=== PATIENT | male | born 1955 | race Caucasian/White ===

== ENCOUNTER 2016-06-24 12:12 | Emergency (ER) | payer OTHER ==
--- NOTE | 2016-06-24 15:21 | DIAGNOSTIC IMAGING REPORT ---
PROCEDURE: US VENOUS - RIGHT EXT INDICATION: SWELLING TECHNIQUE: Duplex sonography of the deep venous system in the right lower extremity was performed. Compression and augmentation techniques were used. COMPARISON: None. FINDINGS: Each interrogated segment of deep vein from the common femoral vein into the calf veins demonstrates normal compressibility, augmentation and/or color Doppler flow without filling defect. There is a heterogeneous cystic area extending from the popliteal fossa to the distal calf. This most likely represents evolving clot and hematoma IMPRESSION: 1. No deep venous thrombosis in the right lower extremity. 2. Evolving clot and hematoma in the calf.
--- NOTE | 2016-06-24 17:09 | ED CLINICAL REPORT ---
Clinical Report - Physicians/Mid Levels [facility] [address] [place] [address] 06/24/2016 12:13 Patient: MICHAELA MARMOLEJO Time Seen: 12:22. Arrived- By private vehicle. Historian- patient. HISTORY OF PRESENT ILLNESS Chief Complaint: LOWER EXTREMITY PAIN and SWELLING. This started several days ago and is still present. Severity is described as being moderate. The quality is noted to be dull. Flexion- worsened by standing and flexion. (elevation improves). Symptoms located in the area of the right leg. The patient has had mild redness and swelling. He has had mild difficulty walking. It has been associated with pain in the right leg. No bladder dysfunction, bowel dysfunction, sensory loss or motor loss. Patient denies an injury. Similar symptoms previously: None. Recent medical care: Not recently seen/assessed. REVIEW OF SYSTEMS No cough, chest pain, difficulty breathing, fever or skin rash. No enlarged lymph nodes, neck pain, back pain, headache or blurred vision. No sore throat, abdominal pain, vomiting, diarrhea or black stools. No difficulty with urination or bloody stools. All systems otherwise negative, except as recorded above. PAST HISTORY Problems: Knee Injury. Additional Surgeries: Ankle surg. Shoulder Surgery. Medications: Prostate daily . Atorvastatin Calcium Oral 10 mg, daily. Lipitor Oral 10 mg, daily. Allergies: None. SOCIAL HISTORY Never smoker. Occasional alcohol use. No drug use. ADDITIONAL NOTES The nursing notes have been reviewed. PHYSICAL EXAM Vital Signs: 06/24/2016 12:36 BP: 126/78. HR: 98. RR: 20. O2 saturation: 95%. Temp: 98.2 F. Pain level now: 4/10. Have been reviewed. Appearance: Alert. Oriented X3. No acute distress. Eyes: Pupils equal, round and reactive to light. Eyes normal inspection. ENT: Nose normal. Neck: Normal inspection. CVS: Normal heart rate and rhythm. Heart sounds normal. Respiratory: No respiratory distress. Breath sounds normal. Abdomen: Soft and nontender. Back: Normal inspection. No tenderness. ROM normal. Skin: Skin intact. Skin warm and dry. Extremities: Right leg: mild erythema and tenderness and moderate swelling located in the upper, mid and lower leg. Limited weight bearing secondary to pain. Neurovascular intact distally. No laceration, abrasion, ecchymosis, puncture wound or foreign body. No deformity. Extremities otherwise negative. Neuro: Oriented X 3. No motor deficit. No sensory deficit. LABS, X-RAYS, AND EKG Lower Extremity Sonography: No compression abnormality noted. Visualized common femoral artery and common femoral vein, superficial femoral artery and superficial femoral vein, deep femoral artery and deep femoral vein and popliteal artery and popliteal vein. Vessels patent. Augmented flow present with calf compression. Evolving hematoma with extravascular clot in R calf. Study type: utilized duplex sonography. The exam was performed by a career guidance technician. The study was interpreted by the radiologist and discussed with the radiologist. Prior studies were not available for comparison. Pulse Oximetry: 06/24/2016 12:36 O2 saturation: 95%. (FIO2 - room air). Interpretation: normal. PROGRESS AND PROCEDURES Course of Care: Pt declined analgesia in the ED. US was performed to evaluate for DVT. Pt had no DVT, but a hematoma was visualized in the calf. The source of this is not clear; however, no evidence of compartment syndrome is present at this time. Pt was given Bactrim, as his skin did have the appearance of mild cellulitis. Patient and family counseled in person regarding the patient's stable condition, test results, diagnosis and need for follow-up. Concerns were addressed. Old medical records reviewed. Disposition: Discharged. Condition: stable. CLINICAL IMPRESSION Cellulitis of the right lower leg. Single hematoma to the right lower leg. Possible ruptured Richmond's cyst; right knee. INSTRUCTIONS Elevate affected areas above chest level as needed and until better. Warnings: GENERAL WARNINGS: Return or contact your physician immediately if your condition worsens or changes unexpectedly, if not improving as expected, or if other problems arise. Your Current Medications: CONTINUE TAKING THE FOLLOWING MEDICATIONS: Atorvastatin Calcium Oral : 10 mg daily. Lipitor Oral : 10 mg daily. Prostate daily *. Prescription Medications: Trimethoprim-Sulfamethoxazole DS: take 1 tablet orally every 12 hours for 7 days. No refill. Follow-up: Follow up with your doctor in three weeks if not better. Understanding of the discharge instructions verbalized by patient. (Electronically signed by Britt Etienne MD 06/30/2016 7:37)
--- NOTE | 2016-06-24 17:09 | ED NURSING NOTES ---
Clinical Report - Nurses [facility] [address] [place] [address] 06/24/2016 12:13 Patient: MICHAELA MARMOLEJO TRIAGE Triage time 12:28. Acuity: LEVEL 3. Chief Complaint: RIGHT LOWER EXTREMITY PAIN, SWELLING and REDNESS. Alert. No acute distress. SEPSIS SCREEN: Sepsis Screen: negative. Negative (no infection suspected/documented). ALFREDO COMA SCORE: [place] Coma Scale: 15- eyes open spontaneously (4); best verbal response- oriented x 4 (5); best motor response- obeys commands (6). --12:45 Melanie Bhardwaj R.N. 12:36 06/24/16. BP: 126/78. HR: 98. RR: 20. O2 saturation: 95%. Temp: 98.2 F (oral). Pain level now: 09/05. --12:45 Melanie Bhardwaj R.N. Weight: 79.3 kg estimated. Height/Length: 68 inches Estimated. BMI: 26.6. --12:29 Melanie Bhardwaj R.N. Medications Lipitor Oral 10 mg, daily. --12:39 Melanie Bhardwaj R.N. Atorvastatin Calcium Oral 10 mg, daily. --12:39 Melanie Bhardwaj R.N. Prostate daily . --12:40 Melanie Bhardwaj R.N. Allergies None. --12:40 Melanie Bhardwaj R.N. Medication/allergy information source: the patient. --12:45 Melanie Bhardwaj R.N. History Arrived by private vehicle. Historian: patient and family. Accompanied by family. Primary physician ([facility]). This occurred (2 days ago, calf started to swell.). It is described as radiating to the right lower extremity and knee ("calf tight and uncomfortable). ( HX of bilat injury to knees, no surg). He has had swelling and trouble walking. The patient has been limping when trying to walk. Treatment FITNESS AND WELLNESS DIRECTOR: (advil). PAST MEDICAL HX: Tetanus status: up-to-date. ( prostate problems, cholesterol issues.). SOCIAL HX: Never smoker. Occasional alcohol use. No drug use. FALL RISK ASSESSMENT: Fall risk assessment completed. No fall risk identified. NUTRITIONAL RISK ASSESSMENT: The nutritional risk assessment revealed no deficiencies. FUNCTIONAL ASSESSMENT: Functional assessment: no impairments noted. LEARNING NEEDS ASSESSMENT: The learning needs assessment revealed no barriers. SKIN INTEGRITY ASSESSMENT: Skin integrity risk assessment completed. No skin integrity risk identified. --12:45 Melanie Bhardwaj R.N. PROBLEMS: Knee Injury. --12:42 Melanie Bhardwaj R.N. ADDITIONAL SURGERIES: Ankle surg. Shoulder Surgery. --12:42 Melanie Bhardwaj R.N. Interventions ID band on patient. To room. --12:45 Melanie Bhardwaj R.N. PHYSICAL ASSESSMENT Ambulatory to room. Patient gowned. GENERAL / NEURO / PSYCH: Oriented X 4. Alert. Appears in pain and anxious. EXTREMITIES: Erythema on the extremities. Limited ROM present. Increased warmth on the extremities. SKIN: Skin intact. Skin is warm and dry. --12:45 Melanie Bhardwaj R.N. NURSING PROGRESS NOTES Extremity elevated. Patient gowned. Two patient identifiers checked. Call light placed in reach. Side rails up x 1. Bed placed in lowest position. Brakes of bed on. Patient ready for evaluation. --12:45 Melanie Bhardwaj R.N. 14:12 06/24/16. BP: 122/71. HR: 92. RR: 18. O2 saturation: 95% on room air. Pain level now: 3/10. 13:10 06/24/16. BP: 121/69. HR: 88. RR: 18. O2 saturation: 97% on room air. --14:14 Melanie Bhardwaj R.N. 17:00 06/24/2016 Bactrim DS (Sulfamethoxazole-TMP DS) PO 1 tab given. Allergies verified and confirmed 5 rights. --18:49 Melanie Bhardwaj R.N. DISPOSITION / DISCHARGE 17:20. Condition at departure: improved. No learning barriers present. Discharge instructions provided and reviewed with the patient and spouse. Reviewed medication(s) side effects, precautions, dosing and course information. Prescription(s) given to the patient. Patient verbalized understanding. Written instructions provided in Rwandan. The patient was discharged home and accompanied by spouse. He left the Emergency Department ambulatory and via private vehicle. Spouse driving. Medication list reviewed and validated. --18:48 Melanie Bhardwaj R.N. 17:44 06/24/16. BP: 123/77. HR: 79. RR: 18. O2 saturation: 99%. Temp: deferred. Pain level now: 07/08. 14:12 06/24/16. BP: 122/71. HR: 92. RR: 18. O2 saturation: 95% on room air. Pain level now: 08/05. 13:10 06/24/16. BP: 121/69. HR: 88. RR: 18. O2 saturation: 97% on room air. 12:36 06/24/16. BP: 126/78. HR: 98. RR: 20. O2 saturation: 95%. Temp: 98.2 F (oral). Pain level now: 09/05. --18:48 Melanie Bhardwaj R.N. Locked/Released at 06/24/2016 18:50 by Melanie Bhardwaj R.N.
--- NOTE | 2016-06-24 17:09 | ED NURSING NOTES ---
Clinical Report - Nurses [facility] [address] [place] [address] 06/24/2016 12:13 Patient: MICHAELA MARMOLEJO TRIAGE Triage time 12:28. Acuity: LEVEL 3. Chief Complaint: RIGHT LOWER EXTREMITY PAIN, SWELLING and REDNESS. Alert. No acute distress. SEPSIS SCREEN: Sepsis Screen: negative. Negative (no infection suspected/documented). ALFREDO COMA SCORE: [place] Coma Scale: 15- eyes open spontaneously (4); best verbal response- oriented x 4 (5); best motor response- obeys commands (6). --12:45 Melanie Bhardwaj R.N. 12:36 06/24/16. BP: 126/78. HR: 98. RR: 20. O2 saturation: 95%. Temp: 98.2 F (oral). Pain level now: 09/05. --12:45 Melanie Bhardwaj R.N. Weight: 79.3 kg estimated. Height/Length: 68 inches Estimated. BMI: 26.6. --12:29 Melanie Bhardwaj R.N. Medications Lipitor Oral 10 mg, daily. --12:39 Melanie Bhardwaj R.N. Atorvastatin Calcium Oral 10 mg, daily. --12:39 Melanie Bhardwaj R.N. Prostate daily . --12:40 Melanie Bhardwaj R.N. Allergies None. --12:40 Melanie Bhardwaj R.N. Medication/allergy information source: the patient. --12:45 Melanie Bhardwaj R.N. History Arrived by private vehicle. Historian: patient and family. Accompanied by family. Primary physician ([facility]). This occurred (2 days ago, calf started to swell.). It is described as radiating to the right lower extremity and knee ("calf tight and uncomfortable). ( HX of bilat injury to knees, no surg). He has had swelling and trouble walking. The patient has been limping when trying to walk. Treatment ELEMENTARY SCHOOL PROFESSIONAL: (advil). PAST MEDICAL HX: Tetanus status: up-to-date. ( prostate problems, cholesterol issues.). SOCIAL HX: Never smoker. Occasional alcohol use. No drug use. FALL RISK ASSESSMENT: Fall risk assessment completed. No fall risk identified. NUTRITIONAL RISK ASSESSMENT: The nutritional risk assessment revealed no deficiencies. FUNCTIONAL ASSESSMENT: Functional assessment: no impairments noted. LEARNING NEEDS ASSESSMENT: The learning needs assessment revealed no barriers. SKIN INTEGRITY ASSESSMENT: Skin integrity risk assessment completed. No skin integrity risk identified. --12:45 Melanie Bhardwaj R.N. PROBLEMS: Knee Injury. --12:42 Melanie Bhardwaj R.N. ADDITIONAL SURGERIES: Ankle surg. Shoulder Surgery. --12:42 Melanie Bhardwaj R.N. Interventions ID band on patient. To room. --12:45 Melanie Bhardwaj R.N. PHYSICAL ASSESSMENT Ambulatory to room. Patient gowned. GENERAL / NEURO / PSYCH: Oriented X 4. Alert. Appears in pain and anxious. EXTREMITIES: Erythema on the extremities. Limited ROM present. Increased warmth on the extremities. SKIN: Skin intact. Skin is warm and dry. --12:45 Melanie Bhardwaj R.N. NURSING PROGRESS NOTES Extremity elevated. Patient gowned. Two patient identifiers checked. Call light placed in reach. Side rails up x 1. Bed placed in lowest position. Brakes of bed on. Patient ready for evaluation. --12:45 Melanie Bhardwaj R.N. 14:12 06/24/16. BP: 122/71. HR: 92. RR: 18. O2 saturation: 95% on room air. Pain level now: 3/10. 13:10 06/24/16. BP: 121/69. HR: 88. RR: 18. O2 saturation: 97% on room air. --14:14 Melanie Bhardwaj R.N. 17:00 06/24/2016 Bactrim DS (Sulfamethoxazole-TMP DS) PO 1 tab given. Allergies verified and confirmed 5 rights. --18:49 Melanie Bhardwaj R.N. DISPOSITION / DISCHARGE 17:20. Condition at departure: improved. No learning barriers present. Discharge instructions provided and reviewed with the patient and spouse. Reviewed medication(s) side effects, precautions, dosing and course information. Prescription(s) given to the patient. Patient verbalized understanding. Written instructions provided in Grenadian. The patient was discharged home and accompanied by spouse. He left the Emergency Department ambulatory and via private vehicle. Spouse driving. Medication list reviewed and validated. --18:48 Melanie Bhardwaj R.N. 17:44 06/24/16. BP: 123/77. HR: 79. RR: 18. O2 saturation: 99%. Temp: deferred. Pain level now: 07/08. 14:12 06/24/16. BP: 122/71. HR: 92. RR: 18. O2 saturation: 95% on room air. Pain level now: 08/05. 13:10 06/24/16. BP: 121/69. HR: 88. RR: 18. O2 saturation: 97% on room air. 12:36 06/24/16. BP: 126/78. HR: 98. RR: 20. O2 saturation: 95%. Temp: 98.2 F (oral). Pain level now: 09/05. --18:48 Melanie Bhardwaj R.N. Locked/Released at 06/24/2016 18:50 by Melanie Bhardwaj R.N.
--- NOTE | 2016-06-24 17:09 | ED ORDER SUMMARY ---
..... Patient: MICHAELA MARMOLEJO OrderSheet [facility] VisitID: [id number] [place] [address] 60y, M Registration Date/Time: 06/24/2016 ORDER SHEET Weight: 79.3 kg (estimated) Allergies: None GENERAL ORDERS: US Venous Right Urgent (14:09 06/24/2016 Sebastian BROOKS) (Ack 14:12 LTapper) (16:57 SRoberts R.N.) MEDICATION ORDERS: Bactrim DS PO (Tablet 800-160 mg) 1 tab (NOW) (16:51 06/24/2016 Sebastian BROOKS) (Ack 16:57 SRoberts R.N.) (18:49 SRoberts R.N.) IV FLUIDS: ORDER SHEET NOTES: [Electronically signed by Melanie Bhardwaj R.N. (18:50 06/24/2016)] [Electronically signed by Britt Etienne MD (07:37 06/30/2016)] [Electronically locked/signed by Melanie Bhardwaj R.N. (18:50 06/24/2016)]
--- NOTE | 2016-06-24 17:09 | ED ORDER SUMMARY ---
..... Patient: MICHAELA MARMOLEJO OrderSheet [facility] VisitID: [id number] [place] [address] 60y, M Registration Date/Time: 06/24/2016 ORDER SHEET Weight: 79.3 kg (estimated) Allergies: None GENERAL ORDERS: US Venous Right Urgent (14:09 06/24/2016 Sebastian BROOKS) (Ack 14:12 LTapper) (16:57 SRoberts R.N.) MEDICATION ORDERS: Bactrim DS PO (Tablet 800-160 mg) 1 tab (NOW) (16:51 06/24/2016 Sebastian BROOKS) (Ack 16:57 SRoberts R.N.) (18:49 SRoberts R.N.) IV FLUIDS: ORDER SHEET NOTES: [Electronically signed by Melanie Bhardwaj R.N. (18:50 06/24/2016)] [Electronically signed by Britt Etienne MD (07:37 06/30/2016)] [Electronically locked/signed by Melanie Bhardwaj R.N. (18:50 06/24/2016)]
--- NOTE | 2016-06-30 07:37 | ED DISCHARGE INSTRUCTIONS ---
Patient: MICHAELA MARMOLEJO General Instructions [facility] VisitID: [id number] [place] [address] 60y, M Registration Date/Time: 06/24/2016 Cellulitis of the right lower leg. Single hematoma to the right lower leg. INSTRUCTIONS Elevate affected areas above chest level as needed and until better. Warnings: GENERAL WARNINGS: Return or contact your physician immediately if your condition worsens or changes unexpectedly, if not improving as expected, or if other problems arise. Your Current Medications: CONTINUE TAKING THE FOLLOWING MEDICATIONS: Atorvastatin Calcium Oral : 10 mg daily. Lipitor Oral : 10 mg daily. Prostate daily *. Prescription Medications: Trimethoprim-Sulfamethoxazole DS: take 1 tablet orally every 12 hours for 7 days. No refill. Follow-up: Follow up with your doctor in three weeks if not better. Understanding of the discharge instructions verbalized by patient. ADDITIONAL INFORMATION Cellulitis You have an infection of the skin known as cellulitis. This usually starts with a scrape, cut, insect bite, blister or other opening in the skin which becomes infected. This is a serious condition. It must be watched closely to be sure the infection is not spreading. With antibiotic treatment, the size of the red area will gradually shrink in size until the skin returns to normal. This will take 7-10 days. The red area should never increase in size once the antibiotic medicine has been started. Occasionally, an infection will be resistant to one antibiotic and another one will have to be used. Home Care: 1) Limit the use of the affected part, since excess movement can cause the infection to spread. 2) If the infection is on your leg, walk as little as possible during the first few days of the treatment. Keep your leg elevated while sitting. This will reduce swelling. 3) Take all of the antibiotic medicine exactly as directed until it is gone. Be careful not to miss any doses, especially during the first seven days. Follow Up with your doctor or this facility as directed. Check the infected area daily for the warning signs listed below. Get Prompt Medical Attention if any of the following occur: -- Spreading area of redness -- Increasing swelling or pain -- Appearance of pus or drainage -- Fever over 100.4 F (38.0 C) oral, or over 101.4 F (38.6 C) rectal, after two days on antibiotics BakerS Cyst The knee joint is surrounded by a capsule filled with lubricating fluid called synovial fluid. This capsule connects to a small pouch behind the knee, called a bursa. Irritation inside the joint from arthritis or a torn cartilage causes excess synovial fluid to form. This builds pressure inside the joint and the extra fluid flows into the bursa behind the knee. This creates a bulge in the back of your knee. This bulge is called a Bakers cyst. A small Bakers cyst usually causes no symptoms. A larger cyst can cause knee pain or a feeling of pressure behind the knee when you try to fully straighten or bend that joint. A Bakers cyst can leak, causing the fluid to move between the tissues of the lower leg. This results in swelling, pain and redness. Treatment of a Bakers cyst involves removal of the excess fluid and injection of a cortisone-type medicine. If excess fluid is a result of a torn cartilage, an operation to repair the cartilage may be the best treatment option. If arthritis is the cause of the excess fluid, and it does not respond to medical treatment, the cyst can be surgically removed. Home Care If you are having knee pain, stay off the affected leg as much as possible until symptoms improve. Make an ice pack (ice cubes in a plastic bag, wrapped in a towel) and apply to the painful area for 20 minutes every 1-2 hours the first day. You may continue to use ice packs 3-4 times a day for the next few days. You may use acetaminophen (Tylenol) or ibuprofen (Motrin, Advil) to control pain, unless another medicine was prescribed. [NOTE: If you have chronic liver or kidney disease or ever had a stomach ulcer or GI bleeding, talk with your doctor before using these medicines.] If crutches or a walker have been recommended, do not bear full weight on the injured leg until you can do so without pain. Check with your doctor before returning to sports or full work duties. If you were given a Velcro knee brace, you may open the brace to apply ice. Unless told otherwise, you may remove the brace to bathe and sleep. Follow Up with your doctor within 1-2 weeks or as advised by our staff. [NOTE: If x-rays were taken, they will be reviewed by a radiologist. You will be notified of any new findings that may affect your care.] Return Promptly or contact your doctor if any of the following occur: Toes or foot becomes swollen, cold, blue, numb or tingly Pain or swelling increases Warmth or redness appears over the knee Redness, swelling or pain in the calf or lower leg Hematoma A hematoma is caused by an injury with damage to small blood vessels. This causes blood to leak into the tissues. Blood forms a pocket under the skin that swells and looks like a purplish patch. Gradually the blood in the hematoma is absorbed back into the body. The swelling and pain of the hematoma will go away. This takes from one to four weeks, depending on the size of the hematoma. The skin over the hematoma may turn bluish then brown and yellow as the blood is dissolved and absorbed. Home Care: Limit motion of the joints near the hematoma. If the hematoma is large and painful, you should avoid sports and other vigorous physical activity until the swelling and pain goes away. Apply an ice pack (ice cubes in a plastic bag, wrapped in a towel) over the injured area for 20 minutes every 1-2 hours the first day. You should continue with ice packs 3-4 times a day for the next two days. Continue the use of ice packs for relief of pain and swelling as needed. You may use acetaminophen (Tylenol) or ibuprofen (Motrin, Advil) to control pain, unless another pain medicine was prescribed. [ NOTE : If you have chronic liver or kidney disease or ever had a stomach ulcer or GI bleeding, talk with your doctor before using these medicines.] Follow Up with your doctor or as advised by our staff. [ NOTE: A radiologist will review any X-rays that were taken. We will notify you of any new findings that may affect your care.] Get Prompt Medical Attention if any of the following occur: Redness around the hematoma Increase in pain or warmth in the hematoma Increase in size of the hematoma Fever of 100.4F (38C) or higher, or as directed by your healthcare provider If the hematoma is on the arm or leg, watch for: Increased swelling or pain in the extremity Numbness or tingling or blue color of the hand or foot You have been given the following additional information: Cellulitis Richmond's Cyst Hematoma (Electronically signed by Britt Etienne MD 06/30/2016 7:37)
--- NOTE | 2016-06-30 07:37 | ED MED RECONCILIATION SUMMARY ---
Patient: MICHAELA MARMOLEJO Medication Reconciliation Report [facility] VisitID: [id number] [address] [place] [address] 60y, M Registration Date/Time: 06/24/2016 Weight: 79.3 kg Height/Length: 68 in. BMI: 26.6 ALLERGIES: None The patient's Home Medications are listed below: CONTINUE TAKING THE FOLLOWING MEDICATIONS: Atorvastatin Calcium Oral 10 mg, daily Lipitor Oral 10 mg, daily Prostate daily The source(s) of the original Home Medication information: patient The following Medications were given to the patient in the Emergency Department: Bactrim DS [PO] PO 1 tab, administered: 06/24/2016 5:00:00 PM The following Medications were prescribed to the patient: Trimethoprim-Sulfamethoxazole DS: take 1 tablet orally every 12 hours for 7 days. No refill. -- Britt Etienne MD
--- NOTE | 2016-06-30 07:37 | ED MED RECONCILIATION SUMMARY ---
Patient: MICHAELA MARMOLEJO Medication Reconciliation Report [facility] VisitID: [id number] [address] [place] [address] 60y, M Registration Date/Time: 06/24/2016 Weight: 79.3 kg Height/Length: 68 in. BMI: 26.6 ALLERGIES: None The patient's Home Medications are listed below: CONTINUE TAKING THE FOLLOWING MEDICATIONS: Atorvastatin Calcium Oral 10 mg, daily Lipitor Oral 10 mg, daily Prostate daily The source(s) of the original Home Medication information: patient The following Medications were given to the patient in the Emergency Department: Bactrim DS [PO] PO 1 tab, administered: 06/24/2016 5:00:00 PM The following Medications were prescribed to the patient: Trimethoprim-Sulfamethoxazole DS: take 1 tablet orally every 12 hours for 7 days. No refill. -- Britt Etienne MD
--- NOTE | 2016-06-30 07:37 | ED MAR SUMMARY ---
..... Medication Administration Record [facility] [address] [place] [address] Patient: MICHAELA MARMOLEJO Visit ID: [id number] 60y, M Weight: 79.3 kg Height/Length: 68 in BMI: 26.6 ALLERGIES: None Given 17:00 06/24/2016 Melanie Bhardwaj R.N. Medication Administered: BACTRIM DS [PO] (SULFAMETHOXAZOLE-TMP DS), Dose: 1 tab PO. Medication Ordered: Bactrim DS PO (Tablet 800-160 mg) 1 tab (NOW).
--- NOTE | 2016-06-30 07:37 | ED MAR SUMMARY ---
..... Medication Administration Record [facility] [address] [place] [address] Patient: MICHAELA MARMOLEJO Visit ID: [id number] 60y, M Weight: 79.3 kg Height/Length: 68 in BMI: 26.6 ALLERGIES: None Given 17:00 06/24/2016 Melanie Bhardwaj R.N. Medication Administered: BACTRIM DS [PO] (SULFAMETHOXAZOLE-TMP DS), Dose: 1 tab PO. Medication Ordered: Bactrim DS PO (Tablet 800-160 mg) 1 tab (NOW).
[2016-09-16] MEDS ORDERED: NORCO1 TA1 PO (09:56)
[2016-09-16] MEDS ORDERED: ALEVE220 MG PO (09:56)
[2016-09-16] MEDS ORDERED: LIPITOR20 MG PO (09:57)
[2016-09-16] MEDS ORDERED: PRILOSEC20 MG PO (09:57)
[2016-09-16] MEDS ORDERED: TAMSULOSIN HCL0.4 MG PO (09:58)
== END 2016-06-24 17:20 | disposition home or self-care (01) ==
LOC: ED SRH 12:12
DX: S80.11XA Contusion of right lower leg, initial encounter (principal); L03.115 Cellulitis of right lower limb; X58.XXXA Exposure to other specified factors, initial encounter; Y93.9 Activity, unspecified; Y92.9 Unspecified place or not applicable; Y99.9 Unspecified external cause status; Z79.899 Other long term (current) drug therapy

== ENCOUNTER 2016-08-19 16:49 | Outpatient (CLI) | payer OTHER ==
--- NOTE | 2016-08-19 18:52 | DIAGNOSTIC IMAGING REPORT ---
PROCEDURE: CT THORAX ABD PELVIS W/CONT INDICATION: Anemia. Weight loss. TECHNIQUE: Oral contrast. 125 ml of Isovue 300 injected intravenously and axial images were obtained of the entire thorax, abdomen, and pelvis with sagittal and coronal reformations. COMPARISON: Compared to chest x-ray on 02/09/2011. FINDINGS: THORAX: Lungs are clear. Heart and mediastinum are normal size and there is no evidence of adenopathy. Moderate coronary vascular calcifications. Mild degenerative change of the thoracic spine. ABDOMEN: There are multiple small low density lesions in the liver (4 - 14 mm) most compatible with cysts. Gallbladder, spleen, pancreas, kidneys (3.0 cm right lower pole cyst), and aorta are normal. There is a 16 x 16 x 8.5 cm ovoid lipomatous area in the left central mesentery of the mid abdomen. Bowel pattern is normal, including appendix. Mild to moderate levoscoliosis and moderate degenerative changes of the lumbar spine. PELVIS: Pelvic structures are normal IMPRESSION: 1. Moderate coronary vascular calcifications. Otherwise negative CT thorax. 2. Multiple low density areas in the liver most likely representing cysts. Ultrasound of the liver is recommended to confirm. 3. There is a large 16 x 16 x 8.5 cm ovoid lipomatous area in the left central mesentery, compatible with mesenteric panniculitis. 4. Mild to moderate levoscoliosis and moderate degenerative changes of the lumbar spine. 5. Otherwise negative CT abdomen. 6. Negative CT pelvis. All CT scans at this facility use dose modulation, iterative reconstruction, and/or weight-based dosing when appropriate to reduce radiation dose to as low as reasonably achievable.
[2016-09-16] MEDS ORDERED: ALEVE220 MG PO (09:56)
[2016-09-16] MEDS ORDERED: NORCO1 TA1 PO (09:56)
[2016-09-16] MEDS ORDERED: LIPITOR20 MG PO (09:57)
[2016-09-16] MEDS ORDERED: PRILOSEC20 MG PO (09:57)
[2016-09-16] MEDS ORDERED: TAMSULOSIN HCL0.4 MG PO (09:58)
== END 2016-08-19 23:00 | disposition home or self-care (01) ==
LOC: CT SRH 16:49
DX: K65.4 Sclerosing mesenteritis (principal); R93.5 Abnormal findings on diagnostic imaging of other abdominal regions, including retroperitoneum; D64.9 Anemia, unspecified; R63.4 Abnormal weight loss
CPT/HCPCS: 90100

== ENCOUNTER 2016-09-06 07:37 | Outpatient (CLI) | payer OTHER ==
--- NOTE | 2016-09-06 09:42 | DIAGNOSTIC IMAGING REPORT ---
PROCEDURE: US ABDOMEN ULTRASOUND-LIMITED INDICATION: LIVER CYST TECHNIQUE: Bhat scale and color Doppler sonographic images of the abdomen were obtained. COMPARISON: CT chest 07/22/2016. FINDINGS: Liver measures 14.9 cm. There are three left hepatic lobe anechoic cysts, largest 8 mm. There is a 1.3 cm left hepatic lobe echogenic lesion, probable hemangioma. There are two right hepatic lobe echogenic lesions measuring 1.4 cm, corresponding to hypoenhancing lesions on the CT scan, probable hemangiomas. Normal gallbladder. Normal hepatopetal flow. Right kidney measures 10.6 cm with a 3.5 cm simple cyst in the mid pole laterally. IMPRESSION: 1. Three left hepatic lobe simple cysts 2. Hepatic hemangiomas 3. Right renal cyst.
[2016-09-16] MEDS ORDERED: ALEVE220 MG PO (09:56)
[2016-09-16] MEDS ORDERED: NORCO1 TA1 PO (09:56)
[2016-09-16] MEDS ORDERED: LIPITOR20 MG PO (09:57)
[2016-09-16] MEDS ORDERED: PRILOSEC20 MG PO (09:57)
[2016-09-16] MEDS ORDERED: TAMSULOSIN HCL0.4 MG PO (09:58)
== END 2016-09-06 23:00 ==
LOC: US SRH 07:37
DX: K76.89 Other specified diseases of liver (principal); D18.09 Hemangioma of other sites; N28.1 Cyst of kidney, acquired

== ENCOUNTER 2016-09-19 07:05 | Inpatient (IN) | payer OTHER ==
[~2016-09-19] VITALS: Ht 172.7 cm; Wt 88.6 kg
[~2016-09-19 07:05] MED LIST: ALEVE220 MG PO; LIPITOR20 MG PO; NORCO1 TA1 PO; PRILOSEC20 MG PO; TAMSULOSIN HCL0.4 MG PO
--- NOTE | 2016-09-19 08:40 | NUR ---
PT ADMITTED FOR EXPLORATORY LAP AND RESECTION OF MESENTERIC MASS. PT CONFIRMED HIS NAME, , MEDICATIONS AND ALLERGIES, NPO STATUS AND PLANNED PROCEDURE. IV ACCESS ESTABLISHED. PRE-OP TEACHING COMPLETED AND QUESTIONS ANSWERED. PT READY FOR SURGERY. PT AND ARE AWARE OF DELAY IN SURGERY, WILL KEEP THEM UPDATED.
--- NOTE | 2016-09-19 11:17 | NUR ---
PT RESTING COMFORTABLY, MOVING AD KENNEY IN HIS ROOM. DECLINED WALK IN HALLWAY AT THIS TIME. PT AND UPDATED ON DELAY IN SURGICAL SCHEDULE.
--- NOTE | 2016-09-19 11:44 | NUR ---
PT VOIDED PRIOR TO GOING TO OR HOLDING AREA.
--- NOTE | 2016-09-19 13:11 | NUR ---
PT BELONGINGS TAKEN TO ROOM 211.
[2016-09-19] MEDS ORDERED: NORCO1 TA1 PO (13:57)
--- NOTE | 2016-09-19 13:58 | Provider's Discharge Care Plan ---
Problem, Goal, Plan Problem List 1. Mesenteric panniculitis
--- NOTE | 2016-09-19 13:58 | Provider's Discharge Care Plan ---
Problem, Goal, Plan Problem List 1. Mesenteric panniculitis
--- NOTE | 2016-09-19 14:08 | NUR ---
PT IS AWAKE AND ALERT. PT DENIES NAUSEA. PT STATES MILD ABOMINAL PAIN. HOWEVER, HE REFUSES PAIN MEDICATIONS WHEN OFFERED. VSS. ABOMEN IS SOFT. DRESSING IS CLEAN AND DRY.
--- NOTE | 2016-09-19 14:51 | OPERATIVE REPORT ---
DATE OF SURGERY: 09/19/2016 SURGEON: Johann Mendoza MD USER EXPERIENCE ARCHITECT: Laura Romero III, MD PREOPERATIVE DIAGNOSIS: 1. Mesenteric mass POSTOPERATIVE DIAGNOSIS: 1. Mesenteric panniculitis (sclerosing mesenteritis) PROCEDURE PERFORMED: 1. Diagnostic laparoscopy with mesenteric biopsy ANESTHESIA: General. INDICATIONS: The patient is a 60-year-old man with a 20 pound weight loss and early satiety. He has also been anemic since 03/2016, and a CT scan demonstrated a 16 cm left central mesenteric mass. SURGICAL TECHNIQUE: The patient was taken to the operating room, where a general anesthetic was administered and the patient prepped and draped in the usual sterile fashion. A local anesthetic of 0.5% Marcaine with epinephrine was used at each trocar site. An intraumbilical incision was made and a Veress needle used to insufflate the abdominal cavity. A 10 mm trocar was passed. Visualization demonstrated an enlarged mesentery just left of midline, as seen on CT scan. An additional 10 mm trocar was placed in the upper midline. A Thunderbeat device was used to take down the visceral peritoneum overlying this mesenteric lesion. There was the appearance of a somewhat discolored fat, of a more brownish color than the yellowish color, in certain areas. Once this was done, the peritoneum was pushed aside and a large cup biter used to extract multiple portions of tissue. This tissue appeared more fibrous than typical mesenteric fat. It was submitted for frozen section, which demonstrated a lymphocytic infiltrate consistent with mesenteritis. Hemostasis was found to be complete after application of bipolar cautery. Irrigation and suction was used. Local anesthetic was instilled, and gas was evacuated. The skin sites were closed with interrupted subcuticular 4-0 Vicryl suture. Steri-Strips and dressings were applied. The patient left in stable condition. No intraoperative complications were encountered.
--- NOTE | 2016-09-19 15:23 | NUR ---
PT RECEIVED BACK TO SCU FROM PACU AT 1430 WITH ORDERS TO DISCHARGE HOME. PT IS COMFORTABLE. CHIEF COMPLAINT WAS SORE THROAT, RELIEVED WITH ICE CHIPS PO. PT WAS UP AND AMBULATED IN MILLER WITHOUT PROBLEMS. EATING LIGHT SNACK AND TOLERATING WITHOUT NAUSEA.
--- NOTE | 2016-09-19 15:58 | NUR ---
DISCHARGE INSTRUCTIONS REVIEWED WITH PATIENT AND HIS , QUESTIONS ANSWERED. PRESCRIPTION GIVEN TO PT. PT AND WERE ADVISED THAT DR KHAN'S OFFICE WAS UNABLE TO SCHEDULE FOLLOW-UP APPOINTMENT AND WILL CALL HIM TO SCHEDULE IN THE NEXT COUPLE OF DAYS. PT NEEDS TO BE SEEN BY DR KHAN IN ONE WEEK.
[2016-09-19 16:14] VITALS: BP 117/76
--- NOTE | 2016-09-19 16:21 | NUR ---
AMBULATING IN [place] WITH TRENCH PIPE LAYER HELPER AND TOLERATING WELL. IV ACCESS DISCONTINUED.
--- NOTE | 2016-09-19 16:47 | NUR ---
Pt discharged to home. Taken to exit in , accompanied by RN. Belongings home with pt.
== END 2016-09-19 17:45 | disposition home or self-care (01) | DRG 395 ==
LOC: SCU SRH 07:05 → U SRH 09:00 → SCU SRH 17:45
PROVIDERS: ADMIT Surgery
PROC: 0DBV4ZX Excision of Mesentery, Percutaneous Endoscopic Approach, Diagnostic (ICD-10-PCS; principal; 2016-09-19 09:00)
DX: K65.4 Sclerosing mesenteritis (principal); R63.4 Abnormal weight loss; K21.9 Gastro-esophageal reflux disease without esophagitis
CPT/HCPCS: 50002; 60001; 70002; 80102; 80212; 80248; 82794; 82897; 83312; 83432; 83587; 83982; 84038; 90001; 90100; 90155; 91004; 95059

== ENCOUNTER 2016-10-31 07:35 | Outpatient (CLI) | payer OTHER ==
--- NOTE | 2016-10-31 10:55 | DIAGNOSTIC IMAGING REPORT ---
PROCEDURE: ABDOMEN/PELVIS WITH CONTRAST CLINICAL INDICATION: SCLEROSING MESENTERITIS F/U TECHNIQUE: 125 ml of Isovue 300 were injected intravenously and axial images were obtained of the abdomen and pelvis with sagittal and coronal reformations. COMPARISON: 08/19/2016 FINDINGS: ABDOMEN: Within the central small bowel mesentery, there is a partially encapsulated fatty mass with minor peripheral inflammation of the fat resulting in appearance of a pseudocapsule. No internal enlarged lymph nodes, although there are occasional thin flat mesenteric lymph nodes within. The mass is fairly stable in size compared to the prior study and exerts a slight mass effect on the surrounding small bowel loops. There has been mild increase in the density of the peripheral inflammation but no solid component or calcification. Multiple sub centimeter hypodensities are scattered throughout the liver, fairly stable in size and extent compared to the prior study. 2.6 cm right cortical renal cyst. Clear lung bases. Normal sized heart. No hiatal hernia. The liver, gallbladder, adrenal glands, kidneys, pancreas and spleen are normal. The abdominal aorta is normal in its course and caliber. Trace atherosclerosis. There are no suspicious calcifications, retroperitoneal adenopathy or masses. The stomach and upper bowel loops are normal. Intact anterior abdominal wall. PELVIS: Moderately prominent external iliac chain, inguinal, and pelvic sidewall lymph nodes have decreased in size. The largest left external iliac chain node now measures 9 mm, previously 15 mm. The appendix and pelvic small bowel loops are normal. Normal amount of stool in the colon and rectum. The prostate gland, seminal vesicles, urinary bladder, and pelvic vessels are normal. No free fluid or suspicious mass. No suspicious osseous lesions. Degenerative disc changes throughout the lumbar spine. IMPRESSION: 1. Stable size but slight increase in encapsulation/peripheral inflammation involving the central mesenteric fatty pseudomass with an appearance consistent sclerosing mesenteritis, nonspecific etiology. No secondary findings to suggest lymphoma. 2. Stable size and extent of multiple hepatic hypodensities. 3. Decrease in size of pelvic lymph nodes. All CT scans at this facility use dose modulation, iterative reconstruction, and/or weight-based dosing when appropriate to reduce radiation dose to as low as reasonably achievable.
== END 2016-10-31 23:00 ==
LOC: US SRH 07:35
DX: K65.4 Sclerosing mesenteritis (principal)